=== PATIENT | male | born 1945 | race Caucasian/White ===

== ENCOUNTER 2022-07-28 14:07 | Outpatient (REF) | payer MEDICARE, OTHER, SELFPAY ==
[2022-07-29 11:38] LABS: Appearance Urine Clear; Color Urine Dark Yellow; Glucose Urine UA Negative (Negative); Leukocyte Esterase Urine Large (3+) (Negative); Nitrite Urine Negative (Negative); PH 6.5 (5.0-9.0); UMIC TRIGGER UA YES; Urine Blood Trace (Negative); Urine Ketones Negative (Negative); Urine Protein Negative (Neg-Trace)
[2022-07-29 14:35] LABS: Bacteria Urine 2+ (None Seen); Hyaline Casts Urine 0-2 /LPF (0-2); RBC Urine 0-2 /HPF (0-2); Squamous Epithelial Cell Urine 0-2 /HPF (0-2); WBC Urine >50 /HPF (0-5)
[2022-12-02 11:41] LABS: Appearance Urine Cloudy; Color Urine Dark Yellow; Glucose Urine UA Negative (Negative); Leukocyte Esterase Urine Large (3+) (Negative); Nitrite Urine Positive (Negative); PH 6.5 (5.0-9.0); Specific Gravity - Urine 1.025 (1.005-1.025); UMIC TRIGGER UA YES; Urine Blood Trace (Negative); Urine Ketones Trace mg/dL (Negative); Urine Protein 100 (2+) mg/dL (Neg-Trace)
[2022-12-02 11:44] LABS: Bacteria Urine 4+ (None Seen); Hyaline Casts Urine 0-2 /LPF (0-2); Squamous Epithelial Cell Urine 0-2 /HPF (0-2); WBC Urine >50 /HPF (0-5)
== END 2022-07-28 14:08 | disposition home or self-care (01) ==
LOC: HO.LAB 14:07
PROVIDERS: Visit Provider Family Medicine
DX: R30.0 Dysuria (principal)
CPT/HCPCS: 81001; 87086; 87088; 87186

== ENCOUNTER 2025-03-12 13:22 | Outpatient (AMB) | payer MEDICARE, OTHER, SELFPAY ==
--- NOTE | 2025-03-12 13:25 | A.OFFPC_ITS ---
Vital Signs 3 03/12/25 13:27 Height 5 ft 11.65 in Weight 264 lb 15.93 oz BMI 36.3 BP 142/88 H Blood Pressure Location Lt brachial Position Sitting Pulse 64 Pulse Source Pulse Oximeter Temp 97.3 F Temp Source Temporal Artery Scan Pulse Oximetry (%) 97 Oxygen Delivery Method Room Air Intake Visit Reasons: establish care/ Bronchiolitis Intake Note: Patient is a new patient here to establish care for Neuropathy, Pinned blood vessel in head, Frequent UTI, Rash on groin area, Ingrown toe nails (Big toes), . Transferring care from Arpan Perry ([facility]) . Medical records have been requested and have not received. Vehicle Service Attendant Required: No Marketing Strategist: Not Required per policy Accompanied by: Self / Same As Patient Allergies procaine (From Novocain) Allergy (Severe, Verified 03/12/25 13:56) Swelling losartan Allergy (Intermediate, Verified 03/12/25 13:56) Unknown Sulfa (Sulfonamide Antibiotics) Allergy (Mild, Verified 03/12/25 13:56) Hives sodium pentothal Allergy (Severe, Uncoded 03/12/25 13:56) stopped heart Medication List - Last Reconciled 03/12/25 by Virginia Polanco PA-C acetaminophen 650 mg PO Q6H PRN amlodipine 10 mg PO DAILY aspirin 325 mg PO DAILY atorvastatin 80 mg PO DAILY cholecalciferol (vitamin D3) 125 mcg PO DAILY clonidine HCl 0.1 mg PO BID clotrimazole-betamethasone 1-0.05 % appl topical BID ezetimibe 10 mg PO DAILY finasteride 5 mg PO DAILY glucosamine HCl 1,500 mg PO DAILY magnesium 250 mg PO DAILY metformin ER 500 mg PO BID methenamine hippurate 1 g PO BID potassium chloride ER 20 mEq PO BID potassium chloride ER 20 mEq PO BID psyllium husk (Metamucil) 1 tbsp PO DAILY tamsulosin 0.8 mg PO DAILY vitamin B complex 1 tab PO DAILY Tobacco use date assessed: 03/12/25 Fall risk assessment: No Falls in past year Last assessed Fall Risk: 03/12/25 Dental Screening Dental Screen Date: 03/12/25 Did you have a dental visit in the last 12 months?: Yes Did you have a dental problem in the last 6 months where you did not have access to dental care?: No Was dental information given to patient?: Patient has dentist HPI establish care/ Bronchiolitis 2 HPI0 Details 80-year-old male coming to the office fo r the 1st time. Transient Ischemic Attacks (TIAs): The patient has experienced TIAs, which are being managed by controlling cholesterol and blood pressure to prevent progression to stroke. Atrial Fibrillation: Diagnosed in 2017 after presenting with a low heart rate of 30 bpm, leading to hospitalization and pacemaker insertion. Dr. Pickens yearly Neuropathy: The patient reports significant neuropathy leading to loss of sensation in the feet, requiring the use of AFOs and a walker for mobility. Seen and evaluated by several neurologist thought to be autoimmune. Follows with Dr. Galloway Gastroesophageal Reflux Disease (GERD): The patient experiences acid reflux exacerbated by certain foods and alcohol, managed with dietary modifications and milk of magnesia. Rash in the groin area: Persistent for over two years, initially thought to be related to athlete's foot, but now considered a contact rash. Has been using Clotrimazole-bethamethasone daily History of Lung Cancer: Underwent surgery to remove the lower lobe of the left lung due to cancer, with no recurrence noted. Urinary Tract Infections: Occur 2-3 times a year, possibly related to prostate issues. Follows with Urology Dr. Santiago [facility] Medical History Stomach ulcer Afib TIA (transient ischemic attack) Surgical History History of mandibular surgery History of lung surgery History of permanent cardiac pacemaker placement History of bilateral knee replacement Social History Housing: House Alcohol intake: current Alcohol intake frequency: a few times a month Alcohol type: beer Patient Tobacco Use Status: Never used Tobacco e-Cigarette/Vaping Use: Never Used Second Hand Smoke Exposure: No service: No Current occupational status: retired Cognitive needs: Yes (Cane, Walker) Hearing needs: No Vision needs: Yes (Glasses) Questionnaire PHQ-9 Over the last 2 weeks, how often have you been bothered by any of the following problems? 1. Little interest or pleasure in doing things: not at all 2. Feeling down, depressed, or hopeless: not at all 3. Trouble falling or staying asleep, or sleeping too much: not at all 4. Feeling tired or having little energy: several days 5. Poor appetite or overeating: not at all 6. Feeling bad about yourself - or that you are a failure or have let yourself or your family down: not at all 7. Trouble concentrating on things, such as reading the newspaper or watching television: not at all 8. Moving or speaking so slowly that other people could have noticed. Or the opposite - being so fidgety or restless that you have been moving around a lot more than usual: not at all 9. Thoughts that you would be better off or of hurting yourself in some way: not at all Total score: 1 Depression Screening Interpretation: Negative Depression Screening Done: Yes 67183 - PHQ-9 Billing: Yes Source: Developed by Drs. Iban Bowden, Agnes Modi, Hussein Sharma and colleagues, with an educational sarah from [employer]. Thrive Questionnaire Date Thrive assessed: 03/12/25 I am a: Patient What is your living situation today?: I have a steady place to live Within the past 12 months, did the food you bought not last and you didn't have the money to get more?: Never true Within the past 12 months, did you worry whether your food would run out before you got money to buy more?: Never true Do you have trouble paying for medicines?: No Do you have trouble getting transportation to medical appointments?: No Do you have trouble paying your heating and electricity bill?: No Do you have trouble taking care of your child, family member or friend?: No Do you have trouble with day-to-day activities such as bathing, preparing meals, shopping, managing finances, etc.?: No Are you currently unemployed and looking for a job?: No Are you interested in more education?: No Please select the resources that you would like help with: None Currently or been in a relationship where the following occur: No concerns reported THRIVE Score: 0 AUDIT C Alcohol Use Questionnaire (AUDIT-C) 1. How often do you have a drink containing alcohol?: Monthly or less 2. How many drinks containing alcohol do you have on a typical day when you are drinking?: 1 or 2 3. How often do you have six or more drinks on one occasion?: Never Total Score: 1 KEANU-7 AMB Questionnaire KEANU-7 Date KEANU - 7 assessed: 03/12/25 Feeling nervous, anxious, or on edge: 0 = Not at all Not being able to stop or control worryin = Not at all Worrying too much about different things: 0 = Not at all Trouble relaxin = Not at all Being so restless that it is hard to sit still: 0 = Not at all Becoming easily annoyed or irritable: 0 = Not at all Feeling afraid as if something awful might happen: 0 = Not at all Total KEANU-7 score (0-4 normal; 5-9 mild; 10-14 moderate; 15-21 severe): 0 Source: Developed by Drs. Iban Bowden, Agnes Modi, Hussein Sharma and colleagues, with an educational sarah from [employer]. KEANU-7 Assessment Billing KEANU-7 Assessment Tool: KEANU-7 Assessment 88070 Review of Systems Const Denies body aches, Denies chills, Denies fever(s), Denies headache(s) and Denies poor appetite Eyes Reports no additional complaints ENT Denies dizziness and Denies headache(s) Card Denies chest pain, Denies lightheadedness and Denies dyspnea Resp Denies cough and Denies dyspnea GI Denies abdominal pain, Denies constipation, Reports dyspepsia (occasional), Denies diarrhea, Denies nausea and Denies vomiting Reports no additional complaints Musc Reports no additional complaints and Denies abnormal gait Skin/Breast Reports as per HPI Neuro Denies abnormal gait, Denies dizziness and Denies headache(s) Psych Reports no additional complaints Physical exam (Primary Care) Vital Signs: Last Vital Signs Temp 97.3 F 03/12/25 13:27 Pulse 64 03/12/25 13:27 BP 142/88 H 03/12/25 13:27 Pulse Ox 97 03/12/25 13:27 Oxygen Delivery Method Room Air 03/12/25 13:27 BMI result Body Mass Index 36.3 Tobacco/Smoking Status: Tobacco use Status Tobacco use date assessed 03/12/25 03/12/25 13:37 Patient Tobacco Use Status Never used Tobacco 03/12/25 13:53 e-Cigarette/Vaping Use Never Used 03/12/25 13:53 PHQ-9: PHQ-9 Score PHQ-9: Total score 1 03/12/25 15:32 Depression Screening Interpretation: Negative Thrive Assessment: Date of Thrive Assessment Date Thrive assessed 03/12/25 03/12/25 13:37 Currently or been in a relationship where the following occur: No concerns reported Const General: cooperative, healthy appearing, comfortable and no acute distress Orientation/consciousness: patient oriented x3 HENMT Head: Yes normocephalic Ears: hearing grossly normal bilaterally General nose exam: Normal external nose present Eyes General: appearance normal, both eyes and all related structures Conjunctivae: conjunctivae normal Neck Neck: Yes full ROM and Yes no lymphadenopathy Resp Effort & Inspection: normal respiratory effort Auscultation: clear to auscultation bilaterally, no crackles, no rales, no rhonchi and no wheezes Cardio Rate: regular rate Rhythm: regular rhythm Other: Patient consented to genital exam and medical physics teacher Boyd Santa was present as a human resources operations manager No tenderness to palpation of scrotum or intertriginous fold to the genital area Penis: normal penis, not edematous and not erythematous Meatus: meatus normal and no meatla discharge Scrotum: erythematous Skin Full body images: 2 1. Crusted skin lesion irregular borders 2. Erythematous rash of scrotum and genital area Neuro General: patient oriented x3 Gait exam (Neuro): Normal gait present Extrem General: Yes normal to inspection, Yes full ROM and No edema Psych Affect: normal affect Attitude: cooperative Insight: Good insight present (Psych) Judgement: Good judgement present (Psych) Coding Level of Care Code New Pt Level 4 (10546) Diagnoses Hypercholesterolemia E78.00 Hypertension I10 Recurrent UTI N39.0 Neuropathy G62.9 Gait instability R26.81 Foot drop, bilateral M21.371; M21.372 TIA (transient ischemic attack) G45.9 GERD (gastroesophageal reflux disease) K21.9 Rash of genital area R21 Skin lesion L98.9 Additional Codes KEANU-7 Assessment Billing - KEANU-7 Assessment Tool: KEANU-7 Assessment 45502 ([id number]) PHQ-9 - 74668 - PHQ-9 Billing: Yes ([id number]) Assessment & Plan Assessment & Plan (1) Hypercholesterolemia: Code(s): E78.00 - Pure hypercholesterolemia, unspecified Category: Medical Plan: Avoid foods that are high in cholesterol such as red meat, fried foods, eggs and baked goods. Triglyceride goal of less than 150 and LDL goal of less than 70. Continue on atorvastatin which was refilled today. Patient reports he had blood work done recently through his last PCP plan to obtain these records in order blood work accordingly (2) Hypertension: Code(s): I10 - Essential (primary) hypertension Category: Medical Plan: Continue on current blood pressure medication. Avoid salt intake and encourage healthy diet and regular exercise. Blood pressure elevated today he has been out of his amlodipine and clonidine for several weeks. Plan to restart and follow up in 6 weeks to recheck blood pressure (3) Recurrent UTI: Comment: Dr. Santiago Urology Code(s): N39.0 - Urinary tract infection, site not specified Category: Medical Plan: Patient is currently following with urologist for recurrent UTIs. (4) Neuropathy: Comment: Dr. Galloway Code(s): G62.9 - Polyneuropathy, unspecified Category: Medical Plan: Patient has extensive history of neuropathy has seen several different specialists for this concern and currently uses AFOs. He does have significant balance issues related to his neuropathy in his being followed by Dr. Galloway routinely. (5) Gait instability: Code(s): R26.81 - Unsteadiness on feet Category: Medical Plan: Related to neuropathy, see above plan (6) Foot drop, bilateral: Code(s): M21.371 - Foot drop, right foot; M21.372 - Foot drop, left foot Category: Medical Plan: Continue with the use of AFOs, see plan for neuropathy (7) TIA (transient ischemic attack): Comment: 2023 Dr. Galloway neurology Code(s): G45.9 - Transient cerebral ischemic attack, unspecified Category: Medical Plan: Patient has a history of TIA several years ago. He is currently on daily aspirin. Recommended good control of cholesterol with atorvastatin 80 mg, blood pressure control with clonidine and amlodipine and control of blood sugars. Patient has no history of diabetes. (8) GERD (gastroesophageal reflux disease): Code(s): K21.9 - Gastro-esophageal reflux disease without esophagitis Category: Medical Plan: Avoid trigger foods such as citrus, tomato products, soda, caffeine, spicy foods and other foods that may be irritating to your stomach. Avoid laying flat 3-4 hours after eating and elevate the head of the bed 30 degrees to prevent acid from moving into the esophagus. (9) Rash of genital area: Code(s): R21 - Rash and other nonspecific skin eruption Category: Medical Plan: Patient having a erythematous rash of the genital area. At this time plan to discontinue the steroid aspect of the antifungal cream as steroid should only be used for maximum of 2 weeks at a time. Prescription sent for clotrimazole and referral was placed to Dermatology for further evaluation (10) Skin lesion: Code(s): L98.9 - Disorder of the skin and subcutaneous tissue, unspecified Category: Medical Plan: Patient has a scabbed skin lesion on the back that is itchy and will occasionally bleed. Recommend urgent referral to Dermatology for biopsy of this lesion as it is suspicious in nature. Patient was provided with a list of local dermatology offices and advised to obtain the earliest appointment. Plan The patient will continue to manage Transient Ischemic Attacks through strict control of cholesterol and blood pressure, with regular follow-ups to monitor these parameters. Atrial fibrillation is being managed with a pacemaker, and the patient will have regular device checks and annual cardiology visits to ensure optimal function. For neuropathy, the patient will continue using AFOs and a walker to aid mobility, with no current interventions available to reverse the condition. Gastroesophageal Reflux Disease will be managed through dietary modifications, avoiding known triggers, and using milk of magnesia as needed for symptom relief. The persistent rash in the groin area will be treated with a new cream, clotrimazole without steroids, and a dermatology referral has been made for further evaluation. The patient will continue to monitor for urinary tract infections and seek treatment as needed, with consideration of prostate health as a contributing factor. This note was constructed using voice recognition software. While every effort has been made to ensure accuracy and manager strategic sourcing, still areas may have been included sometimes these areas may affect the content or meeting of the given symptoms. Total time spent caring for the patient today was 30 minutes. This includes time spent before the visit reviewing the chart, time spent during the visit, and time spent after the visit and documentation. Patient was informed and verbally consented to the use of an ambient scribe for clinic note documentation during this visit. Orders: Referrals 2 Dermatology Referral L98.9 - Disorder of the skin and subcutaneous tissue, unspecified, R21 - Rash and other nonspecific skin eruption Medications: New 2 clonidine HCl 0.1 mg PO BID 180 tabs 0RF amlodipine 10 mg PO DAILY 90 tabs 0RF clotrimazole 1% (Athlete's Foot (clotrimazole)) 1 appl topical BID 30 grams 0RF I10 - Essential (primary) hypertension methenamine hippurate 1 g PO BID 180 tabs 0RF atorvastatin 80 mg PO DAILY 90 tabs 1RF
[2025-03-12 13:27] VITALS: BP 142/88; PULSE 64; TEMP 36.3; O2SAT 97; BMI 36.3
--- OUTSIDE RECORDS SUMMARY | 2025-03-12 15:16 | XMS_ITS | Clinical Summary ---
Author Organization [facility] Address [address] [place] [address] Care Team Providers Care Publicity Consultant Name Role Phone Unavailable Primary Care Provider Unavailabl e Social History Tobacco Use Types Packs/Day Years Used Date Smoking Tobacco: Never Assessed Sex and Gender Information Value Date Recorded Sex Assigned at Not on file Legal Sex Male 11:44 AM EDT Gender Identity Not on file Sexual Orientation Not on file Plan of Treatment Health Maintenance Due Date Last Done Comments Hepatitis C Virus Screening 1945 DTaP/Tdap/Td Vaccines (1 - Tdap) 1965 Pneumococcal Vaccines 50+ (1 of 1 - PCV) 01/27/1996 Zoster (Shingles) Vaccine (1 of 2) 01/27/1996 RSV Vaccine 60 years and old er and Patients (1 - 1-dose 75+ series) 2021 COVID-19 Vaccine (2023-2 5 season) 2024 Hepatitis B Vaccines Aged Out No long er eligible based on patient's age to complete this topic
== END 2025-03-12 15:00 | disposition home or self-care (01) ==
LOC: HO.HMCH 13:23
PROVIDERS: PCP Internal Medicine
DX: E78.00 Pure hypercholesterolemia, unspecified (principal); I10 Essential (primary) hypertension; N39.0 Urinary tract infection, site not specified; G62.9 Polyneuropathy, unspecified; R26.81 Unsteadiness on feet; M21.371 Foot drop, right foot; M21.372 Foot drop, left foot; G45.9 Transient cerebral ischemic attack, unspecified; K21.9 Gastro-esophageal reflux disease without esophagitis; R21 Rash and other nonspecific skin eruption; L98.9 Disorder of the skin and subcutaneous tissue, unspecified

== ENCOUNTER → 2025-03-12 13:22 | Outpatient (BNVA) | payer MEDICARE, OTHER, SELFPAY | PROVIDERS: PCP Internal Medicine | DX: E78.00 Pure hypercholesterolemia, unspecified (principal); I10 Essential (primary) hypertension; N39.0 Urinary tract infection, site not specified; G62.9 Polyneuropathy, unspecified; R26.81 Unsteadiness on feet; M21.371 Foot drop, right foot; M21.372 Foot drop, left foot; G45.9 Transient cerebral ischemic attack, unspecified; K21.9 Gastro-esophageal reflux disease without esophagitis; R21 Rash and other nonspecific skin eruption; L98.9 Disorder of the skin and subcutaneous tissue, unspecified | CPT/HCPCS: 96127; 99202 ==

== ENCOUNTER 2025-05-13 14:40 | Outpatient (AMB) | payer MEDICARE, OTHER, SELFPAY ==
--- NOTE | 2025-05-13 14:47 | A.OFFPC_ITS ---
Vital Signs 05/13/25 14:50 05/13/25 15:32 Height 5 ft 11.65 in Weight 269 lb 6.478 oz BMI 36.9 BP 178/82 H 128/78 Blood Pressure Location Lt brachial Lt brachial Position Sitting Pulse 59 Pulse Source Pulse Oximeter Pulse Oximetry (%) 96 Oxygen Delivery Method Room Air Intake Visit Reasons: f/u HTN Inside Sales Agent Required: No Accompanied by: Self / Same As Patient Allergies procaine (From Novocain) Allergy (Severe, Verified 05/13/25 15:12) Swelling losartan Allergy (Intermediate, Verified 05/13/25 15:12) Unknown Sulfa (Sulfonamide Antibiotics) Allergy (Mild, Verified 05/13/25 15:12) Hives sodium pentothal Allergy (Severe, Uncoded 05/13/25 15:12) stopped heart Medication List - Last Reconciled 05/13/25 by Virginia Polanco PA-C acetaminophen 650 mg PO Q6H PRN amlodipine 10 mg PO DAILY aspirin 81 mg PO DAILY aspirin 325 mg PO DAILY atorvastatin 80 mg PO DAILY cholecalciferol (vitamin D3) 125 mcg PO DAILY clonidine HCl 0.1 mg PO BID clotrimazole 1% (Athlete's Foot (clotrimazole)) 1 appl topical BID ezetimibe 10 mg PO DAILY finasteride 5 mg PO DAILY glucosamine HCl 1,500 mg PO DAILY magnesium 250 mg PO DAILY metformin ER 500 mg PO BID methenamine hippurate 1 g PO BID potassium chloride ER 20 mEq PO BID psyllium husk (Metamucil) 1 tbsp PO DAILY tamsulosin 0.8 mg PO DAILY vitamin B complex 1 tab PO DAILY Tobacco use date assessed: 05/13/25 Fall risk assessment: No Falls in past year Last assessed Fall Risk: 05/13/25 Dental Screening Dental Screen Date: 05/13/25 Did you have a dental visit in the last 12 months?: No Did you have a dental problem in the last 6 months where you did not have access to dental care?: No Was dental information given to patient?: No HPI f/u HTN HPI Details 80-year-old male with past medical histo ry of hypertension, hypercholesterolemia, recurrent UTI, TIA, footdrop bilaterally, GERD last seen 03/19 coming in for follow up.? In review of the notes, patient was seen by Cardiology 01/2025 for device interrogation. Presenting with a recent cerebrovascular accident (stroke). The patient experienced a stroke with symptoms including facial numbness and speech difficulties. The stroke was preceded by a history of hypertension and issues with blood thinning medications. The patient was admitted to the hospital, where an MRI was planned but delayed due to pacemaker considerations. Patient does describe an episode of lightheadedness and dizziness accompanied by a visual change and right ear pressure that started last night and lasted a 30 minutes to 1 hour before resolving spontaneously. He did not seek emergency medical attention at that time and symptoms did resolve. He has not had any symptoms today but does mentioned right ear pressure. [facility] Medical History Stomach ulcer Afib TIA (transient ischemic attack) Surgical History History of mandibular surgery History of lung surgery History of permanent cardiac pacemaker placement History of bilateral knee replacement Social History Housing: House Alcohol intake: current Alcohol intake frequency: a few times a month Alcohol type: beer Patient Tobacco Use Status: Never used Tobacco e-Cigarette/Vaping Use: Never Used Second Hand Smoke Exposure: No service: No Current occupational status: retired Cognitive needs: Yes (Cane, Walker) Hearing needs: No Vision needs: Yes (Glasses) Questionnaire Thrive Questionnaire Date Thrive assessed: 05/13/25 I am a: Patient What is your living situation today?: I have a steady place to live Within the past 12 months, did the food you bought not last and you didn't have the money to get more?: Never true Within the past 12 months, did you worry whether your food would run out before you got money to buy more?: Never true Do you have trouble paying for medicines?: No Do you have trouble getting transportation to medical appointments?: No Do you have trouble paying your heating and electricity bill?: No Do you have trouble taking care of your child, family member or friend?: No Do you have trouble with day-to-day activities such as bathing, preparing meals, shopping, managing finances, etc.?: No Are you currently unemployed and looking for a job?: No Are you interested in more education?: No Please select the resources that you would like help with: None Currently or been in a relationship where the following occur: No concerns reported THRIVE Score: 0 KEANU-7 AMB Questionnaire KEANU-7 Date KEANU - 7 assessed: 05/13/25 Source: Developed by Drs. Iban Bowden, Agnes Modi, Hussein Sharma and colleagues, with an educational sarah from [employer]. Review of Systems Const Denies body aches, Denies chills, Denies fever(s), Denies headache(s) and Denies poor appetite Eyes Reports no additional complaints ENT Reports dizziness (last night ) and Denies headache(s) Card Denies chest pain, Denies syncope, Denies edema, Denies irregular heart rhythm, Denies lightheadedness and Denies dyspnea Resp Denies dyspnea GI Denies abdominal pain, Denies constipation, Denies diarrhea, Denies nausea and Denies vomiting Reports no additional complaints Musc Reports no additional complaints and Denies abnormal gait Skin/Breast Reports system reviewed and no additional complaints, except as documented Neuro Denies abnormal gait, Reports dizziness (last night ), Denies syncope and Denies headache(s) Psych Reports no additional complaints Physical exam (Primary Care) Vital Signs: Last Vital Signs Pulse 59 05/13/25 14:50 BP 128/78 05/13/25 15:32 Pulse Ox 96 05/13/25 14:50 Oxygen Delivery Method Room Air 05/13/25 14:50 BMI result Body Mass Index 36.9 Tobacco/Smoking Status: Tobacco use Status Tobacco use date assessed 05/13/25 05/13/25 14:51 Patient Tobacco Use Status Never used Tobacco 05/13/25 14:51 e-Cigarette/Vaping Use Never Used 05/13/25 14:51 Thrive Assessment: Date of Thrive Assessment Date Thrive assessed 05/13/25 05/13/25 14:51 Currently or been in a relationship where the following occur: No concerns reported Const General: cooperative, healthy appearing, comfortable and no acute distress Orientation/consciousness: patient oriented x3 HENMT Head: Yes normocephalic Ears: hearing grossly normal bilaterally, TM's normal bilaterally and EAC's no rmal General nose exam: Normal external nose present Eyes General: appearance normal, both eyes and all related structures Conjunctivae: conjunctivae normal Pupils: Equal, round and reactive pupils present Neck Neck: Yes full ROM and Yes no lymphadenopathy Resp Effort & Inspection: normal respiratory effort Auscultation: clear to auscultation bilaterally, no crackles, no rales, no rhonchi and no wheezes Cardio Rate: regular rate Rhythm: regular rhythm Skin General skin exam: no rashes or lesions noted Neuro General: patient oriented x3 Cranial nerves: Yes CN's II-XII intact bilaterally, Yes Equal, round and reactive pupils present, Yes Bilaterally intact EOM present, Yes Nystagmus not present, Yes Normal facial strength present, Yes Midline tongue present, Yes Symmetric palate elevation present, Yes Ability to bilaterally rotate head present and Yes Ability to bilaterally elevate shoulders present Gait exam (Neuro): Normal gait present Motor exam (neuro): 5/5 motor strength present throughout and Pronator motor function not present Coordination: [id number] test normal Extrem General: Yes normal to inspection, Yes full ROM and No edema Psych Affect: normal affect Attitude: cooperative Insight: Good insight present (Psych) Judgement: Good judgement present (Psych) Coding Level of Care Code Est Pt Level 4 (99236) Diagnoses Primary hypertension I10 Hypertension type: primary hypertension Hypercholesterolemia E78.00 Neuropathy G62.9 TIA (transient ischemic attack) G45.9 Skin lesion L98.9 Assessment & Plan Assessment & Plan (1) Hypertension: Code(s): I10 - Essential (primary) hypertension Category: Medical Qualifiers: Hypertension type: primary hypertension Qualified Code(s): I10 - Essential (primary) hypertension Plan: Continue on current blood pressure medication. Avoid salt intake and encourage healthy diet and regular exercise. (2) Hypercholesterolemia: Code(s): E78.00 - Pure hypercholesterolemia, unspecified Category: Medical Plan: Avoid foods that are high in cholesterol such as red meat, fried foods, eggs and baked goods. Triglyceride goal of less than 150 and LDL goal of less than 70. Plan to order for updated blood work. LDL at goal on last labs. (3) Neuropathy: Comment: Dr. Galloway Code(s): G62.9 - Polyneuropathy, unspecified Category: Medical Plan: Patient has extensive history of neuropathy has seen several different specialists for this concern and currently uses [facility]. He does have significant balance issues related to his neuropathy in his being followed by Dr. Galloway routinely. (4) TIA (transient ischemic attack): Comment: 2023 Dr. Galloway neurology Code(s): G45.9 - Transient cerebral ischemic attack, unspecified Category: Medical Plan: Patient has a history of TIA several years ago. He is currently on daily aspirin. Recommended good control of cholesterol with atorvastatin 80 mg, blood pressure control with clonidine and amlodipine and control of blood sugars. Patient has no history of diabetes. He is scheduled for MRI tomorrow and does continue to follow with Dr. Galloway who also recommended restarting on Plavix. On exam there are no concerning findings however he did have that episode of lightheadedness and dizziness with visual changes last night. I did discuss with the patient if he has episodes like this going forward he needs to seek emergency evaluation and I also reviewed other red flag symptoms and when to present for re-evaluation. Patient understands and agrees to go to ED should he develop any concerning symptoms. (5) Skin lesion: Code(s): L98.9 - Disorder of the skin and subcutaneous tissue, unspecified Category: Medical Plan: Patient has a scabbed skin lesion on the back that is itchy and will occasionally bleed. He has an appointment in May with dermatology. Plan The patient will continue on clonidine and amlodipine for hypertension management, as blood pressure readings have improved with these medications. An MRI is scheduled to further evaluate the recent cerebrovascular accident, with results expected to guide further management. The patient is advised to monitor symptoms closely, particularly dizziness and hearing changes, and to seek emergency care if symptoms worsen. This note was constructed using voice recognition software. While every effort has been made to ensure accuracy and picking machine operator, still areas may have been included sometimes these areas may affect the content or meeting of the given symptoms. Total time spent caring for the patient today was 30 minutes. This includes time spent before the visit reviewing the chart, time spent during the visit, and time spent after the visit and documentation. Patient was informed and verbally consented to the use of an ambient scribe for clinic note documentation during this visit.
[2025-05-13 14:50] VITALS: BP 178/82; PULSE 59; O2SAT 96; BMI 36.9
[2025-05-13 15:32] VITALS: BP 128/78
--- OUTSIDE RECORDS SUMMARY | 2025-05-13 16:03 | XMS_ITS | Encounter Summary ---
Author Organization [facility] Address [address] [place] [address] Phone Care Team Providers Care Research Assistant Name Role Phone Nathaniel Perry MD Primary Care Provider [phone] Reason for Referral * Consultation (Elective) - Closed Specialty Diagnoses / Procedures Referred By Contac t Referred To Contact Neurology Diagnoses Hereditary and idiopathic peripheral neuropathy Nathaniel Perry MD Phone: tel: fax: [address] [address] Phone: tel: Referral ID Status Reason Start Date Expiration Date Visits Re quested Visits Authorized [id number] Closed 10/22/2019 10/22/2020 1 1 Encounter Details Date Type Department Care Team (Late st Contact Info) Description 10/22/2019 Transcribe Orders [facility] Department of Neurology [address], [address] [place] [address] Nathaniel Perry MD [address] [address] Hereditary and idiopathic peripheral neuropathy (Primary Dx) Social History Tobacco Use Types Packs/Day Years Used Date Smoking Tobacco: Never Assessed Sex and Gender Information Value Date Recorded Sex Assigned at Male 02/03/2020 9:19 AM EDT Legal Sex Male 11:29 AM EST Gender Identity Male 02/03/2020 9:19 AM EDT Sexual Orientation Straight 02/03/2020 9: 19 AM EDT documented as of this encounter Plan of Treatment Scheduled Referrals Name Type Priority Associated Diagnoses Order Schedule Ambulatory referral to [facility] Neurology Outpatient Referral Routine Hereditary and idiopathic peripheral neuropathy Ordered: 10/22/2019 documented as of this encounter Visit Diagnoses Diagnosis Hereditary and idiopathic peripheral neuropathy- Primary Unspecified hereditary and idiopathic peripheral neuropathy documented in this encounter Care Teams Research Assistant Relationship Specialty Start Date End Date Nathaniel Perry MD [address] [place] [id number] PCP - General Internal Medicine 10/09/19 documented as of this encounter Additional Source Comments The information contained in this document represents components of the legal health record. It is not the complete legal health record.[facility]
--- OUTSIDE RECORDS SUMMARY | 2025-05-13 16:03 | XMS_ITS | Clinical Summary ---
Author Organization [facility] Facility Address [address] [address] Care Team Providers Care Denture Packer Name Role Phone Unavailable Primary Care Provider Unavailabl e Social History Tobacco Use Types Packs/Day Years Used Date Smoking Tobacco: Never Assessed Sex and Gender Information Value Date Recorded Sex Assigned at Not on file Legal Sex Male 7:59 AM EDT Gender Identity Not on file Sexual Orientation Not on file Plan of Treatment Health Maintenance Due Date Last Done Comments Pneumococcal Vaccine: 50+ Ye ars (1 of 1 - PCV) 01/27/1996 Influenza Vaccine (#1) 2025 Hepatitis B Vaccine Aged Out No longe r eligible based on patient's age to complete this topic Insurance Medicare [facility]
--- OUTSIDE RECORDS SUMMARY | 2025-05-13 16:03 | XMS_ITS ---
Author Name [facility] Organization Unknown Encounters Encounter Type Encounter Reason Primary Diagnosis Location Date Ambulatory [facility], [facility]. ([facility]) 09/27/2024
--- OUTSIDE RECORDS SUMMARY | 2025-05-13 16:03 | XMS_ITS | Encounter Summary ---
Author Organization [facility] Address [address] [place] [address] Care Team Providers Care Disease Control Inspector Name Role Phone Nathaniel Perry MD Primary Care Provider [phone] Encounter Details Date Type Department Care Team (Late st Contact Info) Description 10/18/2024 Lab Requisition [facility] - [facility] Lab [address] [facility] [facility] [place] [address] Teo Rutledge MD [address] [address] Urinary tract infection, site not specified Social History Tobacco Use Types Packs/Day Years Used Date Smoking Tobacco: Never Assessed Sex and Gender Information Value Date Recorded Sex Assigned at Not on file Legal Sex Male 4:50 PM EST Gender Identity Not on file Sexual Orientation Not on file documented as of this encounter Plan of Treatment Not on file documented as of this encounter Procedures Procedure Name Priority Date/Time Associated Diagnosis Comments CULTURE URINE Routine 10/18/2024 12:00 AM EST Urinary tract infection, site not specified documented in this encounter Results * (ABNORMAL) Culture urine (10/18/2024 12:00 AM EST) Culture, Urine 50,000-100,000 CFU/mL Enterococcus faecalis(A) KYLIE 10/20/2024 7:54 AM EST [facility] Comment: Edited result: Previously reported as Enterococcus species on 10/19/2024 at 1304 EST. Urine Urine specimen from urethra / Unknown 10/18/2024 10/18/2024 6:11 PM EST Narrative Organism Antibiotic Method Susceptibility Enterococcus faecalis Benzylpenicillin KYLIE 2 ug/ml: Susceptible Enterococcus faecalis Ampicillin KYLIE <=2 ug/ml: Susceptible Enterococcus faecalis Ciprofloxacin KYLIE <=0.5 ug/ml: Susceptible Enterococcus faecalis Levofloxacin KYLIE 0.5 ug/ml: Susceptible Enterococcus faecalis Linezolid KYLIE 2 ug/ml: Susceptible Enterococcus faecalis Vancomycin KYLIE 1 ug/ml: Susceptible Enterococcus faecalis Tetracycline KYLIE >=16 ug/ml: Resistant Enterococcus faecalis Nitrofurantoin KYLIE <=16 ug/ml: Susceptible us Teo Rutledge MD LAB MICROBIOLOGY - [facility] ORDERABLES Final Result [facility] ([facility]) [facility] [address] [place] [address], documented in this encounter Visit Diagnoses Diagnosis Urinary tract infection, site not specified documented in this encounter Care Teams Disease Control Inspector Relationship Specialty Start Date End Date Nathaniel Perry MD PCP - General Internal Medicine 11/06/24 documented as of this encounter
--- OUTSIDE RECORDS SUMMARY | 2025-05-13 16:03 | XMS_ITS | Clinical Summary ---
Author Organization [facility] Address [address] [place] [address] Care Team Providers Care Shell Shop Supervisor Name Role Phone Unavailable Primary Care Provider [...]
== END 2025-05-13 16:06 | disposition home or self-care (01) ==
LOC: HO.HMCH 14:41
DX: I10 Essential (primary) hypertension (principal); E78.00 Pure hypercholesterolemia, unspecified; G62.9 Polyneuropathy, unspecified; G45.9 Transient cerebral ischemic attack, unspecified; L98.9 Disorder of the skin and subcutaneous tissue, unspecified

== ENCOUNTER → 2025-05-13 14:40 | Outpatient (BNVA) | payer MEDICARE, OTHER, SELFPAY | DX: I10 Essential (primary) hypertension (principal); E78.00 Pure hypercholesterolemia, unspecified; G62.9 Polyneuropathy, unspecified; G45.9 Transient cerebral ischemic attack, unspecified; L98.9 Disorder of the skin and subcutaneous tissue, unspecified | CPT/HCPCS: 99212 ==